=== PATIENT | male | born 1975 | race Caucasian/White ===

== ENCOUNTER → 2017-11-11 | Day surgery (SDC) | payer OTHER | END | disposition home or self-care (01) | LOC: GIL 14:38 | DX: R19.4 Change in bowel habit (principal); Z53.9 Procedure and treatment not carried out, unspecified reason ==

== ENCOUNTER 2017-11-19 07:27 | Day surgery (SDC) | payer OTHER ==
[2017-11-19] MEDS ORDERED: MIDAZOLAM 1 MG/ML 2 ML INJ ×2 (09:19→09:20)
[2017-11-19] MEDS ORDERED: FENTAnyl 50 MCG/ML VIAL (09:20)
== END 2017-11-19 09:50 | disposition home or self-care (01) ==
LOC: GIL 07:27
DX: R19.4 Change in bowel habit (principal); K64.8 Other hemorrhoids
CPT/HCPCS: 45378

== ENCOUNTER 2018-05-08 05:58 | Day surgery (SDC) | payer OTHER ==
[2018-05-08] MEDS ORDERED: FENTAnyl 50 MCG/ML VIAL (07:55)
[2018-05-08] MEDS ORDERED: MIDAZOLAM 1 MG/ML 2 ML INJ ×2 (07:55)
== END 2018-05-08 12:38 | disposition home or self-care (01) ==
LOC: GIL 05:58
DX: K21.9 Gastro-esophageal reflux disease without esophagitis (principal); K29.60 Other gastritis without bleeding; E78.5 Hyperlipidemia, unspecified
CPT/HCPCS: 43239; 88305